=== PATIENT | female | born 1950 | race Caucasian/White ===

== ENCOUNTER → 2019-04-16 11:11 | Outpatient (CLI) | payer MEDICARE, OTHER, SELFPAY ==
[2016-06-24 11:02] VITALS: BMI 27.8
--- NOTE | 2019-04-16 11:19 | RAD_ITS ---
STUDY: X-RAY - LUMBAR SPINE REASON FOR EXAM: Female, 68 years old. low back pain TECHNIQUE: 3 view(s) of the lumbar spine were obtained. COMPARISON: None FINDINGS: Normal lumbar lordosis. There is no substantial scoliosis. There is a normal alignment of the vertebrae. There is diffuse demineralization with multi-level endplate spondylosis. There is disc space narrowing L5-S1. There is slight compression deformity of L2 involving the superior endplate with slight cortical disruption along the anterior cortex. Mild facet arthropathy seen in the lower lumbar levels. The soft tissue structures are unremarkable. RAD/Lumbar Spine 2 or 3 Views IMPRESSION: 1. Mild compression fracture of L2. MRI suggested. 2. Degenerative disc disease and facet arthropathy most conspicuous at L5-S1. Electronically Signed: Tevin Skinner MD ([facility]) at 15:06 EST , Service support ,
--- NOTE | 2019-04-16 11:20 | RAD_ITS ---
STUDY: X-RAY - THORACIC SPINE REASON FOR EXAM: Female, 68 years old. low back pain TECHNIQUE: 3 view(s) of the thoracic spine were obtained. COMPARISON: None. FINDINGS: There is an increase in the normal thoracic kyphosis. There is minimal levoscoliosis. There is demineralization of the thoracic spine with endplate spondylosis. There is multilevel disc space narrowing of the thoracic spine. The soft tissue structures are unremarkable. RAD/Thoracic Spine 2 Views IMPRESSION: Degenerative changes, as above. Electronically Signed: Tevin Skinner MD ([facility]) at 15:07 EST , Service support ,
== END ==
PROVIDERS: Family Provider Nurse Practitioner Family; PCP Nurse Practitioner Family; Referring Provider Nurse Practitioner Family; Visit Provider Nurse Practitioner Family
DX: M54.5 Low back pain (principal)
CPT/HCPCS: 72070; 72100